=== PATIENT | female | born 1950 | race Caucasian/White ===

== ENCOUNTER → 2016-04-13 | Outpatient (CLI) | payer MEDICARE, MEDICAID ==
[~2016-04-13] MED LIST: ALVESCO160 MCG/Ac IH; ATENOLOL25 MG PO; ATROVENT INHALE14 GM IH; BACTRIM DS 8001 TAB PO; CLARITIN REDITA10 MG PO; COZAAR100 MG PO; CYMBALTA30 MG PO; EPIPEN1 MG/ML MR; EVISTA 60MG60 MG/TAB PO; EVISTA60 MG PO; FOLIC ACID 11 MG/TA1 PO; FOLIC ACID1 MG PO; GEMFIBROZIL600 MG PO; GENTAMICIN180 MG/501 NS; GLUCOTROL 5M5 MG/TAB PO; IPRATROPIUM BROM3 M1 IH; JANUVIA 100MG100 MG PO; KLONOPIN 0.5MG0.5 MG PO; KLONOPIN WAFER0.5 MG PO; LEVOTHYROXINE0.2 MG PO; LIDODERM5% TP; LOPID 600M600 MG/TAB PO; LOSARTAN POTASS50 MG PO; LOVAZA1 GM; MAXALT10 MG; MELATONIN1 MG PO; METFORMIN500 MG PO; MIRAPEX0.5 MG PO; NEURONTIN300 MG PO; NEURONTIN600 MG/TAB PO; NEXIUM 20MG CAP20 MG PO; NEXIUM 40MG40 MG PO; ONGLYZA5 MG PO; PROTONIX 40MG T40 MG PO; SPIRIVA18 MCG IH; ULTRAM 50MG TAB50 MG PO; WELCHOL625 MG PO; XOPENEX HF0.045 MG/A IH; ZESTRIL 20MG TA20 MG PO; vit D
== END ==
LOC: COL.RAD 10:19
DX: M25.512 Pain in left shoulder (principal)
CPT/HCPCS: J3301

== ENCOUNTER → 2016-06-20 | Outpatient (CLI) | payer MEDICARE, MEDICAID | LOC: COL.RAD 08:37 | DX: M25.512 Pain in left shoulder (principal) | CPT/HCPCS: J3301; Q9967 ==

== ENCOUNTER → 2017-10-23 | Outpatient (CLI) | payer MEDICARE, MEDICAID | LOC: SUN.DIA 13:08 | DX: E11.40 Type 2 diabetes mellitus with diabetic neuropathy, unspecified (principal); E78.5 Hyperlipidemia, unspecified; I10 Essential (primary) hypertension; E66.9 Obesity, unspecified; I73.9 Peripheral vascular disease, unspecified | CPT/HCPCS: G0108 ==

== ENCOUNTER 2018-04-07 09:32 | Emergency (ER) | payer MEDICARE, MEDICAID ==
[~2018-04-07] VITALS: Ht 162.6 cm; Wt 118.2 kg
[2018-04-07 09:33] VITALS: TEMP 98.2
[2018-04-07 10:07] LABS: BASO # 0.1 (0.0-0.2); BASO % 1.1 % (0.0-2.0); EOS # 0.2 (0.0-0.7); EOS % 2.1 % (0-4.0); GRAN # 4.9 (1.4-6.5); GRAN % 67.5 % (42.2-75.2); HEMOGLOBIN 12.8 g/dl (12.5-16.0); LYMPH # 1.6 (1.2-3.4); LYMPH % 21.4 % (20.0-51.0); MEAN CELL VOLUME 91 fl (80.0-100.0); MEAN CORPUSCULAR HEMOGLOBIN 32 pg (27.0-31.0); MEAN CORPUSCULAR HGB CONC 35 g/dl (33.0-37.0); MEAN PLATELET VOLUME 10.4 fl (7.4-10.4); MONO # 0.6 (0.1-0.6); MONO % 7.5 % (1.7-9.3); PLATELET COUNT 199 K/mm3 (130-400); RED BLOOD COUNT 3.99 M/mm3 (4.10-5.30); REDCELL DISTRIBUTION WIDTH-CV 11.9 % (11.5-14.5)
[2018-04-07 10:09] LABS: HEMATOCRIT 36.3 % (37.0-47.0)
[2018-04-07 10:16] LABS: ALBUMIN 3.4 gm/dL (3.5-5.0); BILIRUBIN,TOTAL 0.6 mg/dL (0.0-1.0); C-REACTIVE PROTEIN 1.4 mg/dL (0.0-0.9); CALCIUM 8.9 mg/dL (8.4-10.2); CREATININE, serum 0.63 mg/dL (0.52-1.25); POTASSIUM 4.1 mmol/L (3.4-5.0); TOTAL PROTEIN 6.3 gm/dL (6.4-8.2)
[2018-04-07 10:29] LABS: ERYTHROCYTE SEDIMENTATION RATE 14 mm/hr (0-30)
[2018-04-07] MEDS ORDERED: ULTRAM 50MG TAB50 MG PO (10:43)
[2018-04-07 11:24] VITALS: BP 104/81; PULSE 72
== END 2018-04-07 11:30 | disposition home or self-care (01) ==
LOC: COL.ER 09:32
PROVIDERS: Physician Assistant
DX: G89.29 Other chronic pain (principal); M54.2 Cervicalgia; F31.9 Bipolar disorder, unspecified; Z79.84 Long term (current) use of oral hypoglycemic drugs
CPT/HCPCS: J2405; J3010

== ENCOUNTER → 2018-04-18 | Outpatient (CLI) | payer MEDICARE, MEDICAID | LOC: MC.RAD 09:40 | DX: Z12.31 Encounter for screening mammogram for malignant neoplasm of breast (principal); R92.1 Mammographic calcification found on diagnostic imaging of breast ==

== ENCOUNTER → 2018-04-23 | Outpatient (CLI) | payer MEDICARE, MEDICAID | LOC: COL.LAB 09:49 | DX: Z01.812 Encounter for preprocedural laboratory examination (principal); M25.862 Other specified joint disorders, left knee ==

== ENCOUNTER → 2018-04-25 | Outpatient (CLI) | payer MEDICARE, MEDICAID | LOC: MC.RAD 10:11 | DX: R92.0 Mammographic microcalcification found on diagnostic imaging of breast (principal) ==

== ENCOUNTER → 2018-05-01 | Outpatient (CLI) | payer MEDICARE, MEDICAID | LOC: MC.RAD 08:26 | DX: R92.1 Mammographic calcification found on diagnostic imaging of breast (principal); Z98.82 Breast implant status ==

== ENCOUNTER 2021-01-06 12:07 | Inpatient (IN) | payer MEDICARE, MEDICAID ==
[~2021-01-06] VITALS: Ht 162.6 cm; Wt 105.9 kg
[2021-01-06 13:07] LABS: BASO # 0.1 K/mm3 (0.0-0.2); BASO % 1.6 % (0.0-2.0); EOS # 0.2 K/mm3 (0.0-0.7); EOS % 3.2 % (0-4.0); GRAN # 3.7 K/mm3 (1.4-6.5); GRAN % 65.3 % (42.2-75.2); HEMATOCRIT 39.2 % (37.0-47.0); HEMOGLOBIN 13.6 g/dl (12.5-16.0); LYMPH # 1.4 K/mm3 (1.2-3.4); LYMPH % 23.7 % (20.0-51.0); MEAN CELL VOLUME 90 fl (80.0-100.0); MEAN CORPUSCULAR HEMOGLOBIN 31 pg (27.0-31.0); MEAN CORPUSCULAR HGB CONC 35 g/dl (33.0-37.0); MEAN PLATELET VOLUME 10.3 fl (7.4-10.4); MONO # 0.3 K/mm3 (0.1-0.6); MONO % 5.8 % (1.7-9.3); PLATELET COUNT 153 K/mm3 (130-400); RED BLOOD COUNT 4.34 M/mm3 (4.10-5.30); REDCELL DISTRIBUTION WIDTH-CV 12.6 % (11.5-14.5)
[2021-01-06 13:28] LABS: ALBUMIN 4.2 gm/dL (3.4-4.8); BILIRUBIN,TOTAL 0.8 mg/dL (0.2-1.2); CALCIUM 9.8 mg/dL (8.4-10.2); CREATININE, serum 1.56 mg/dL (0.57-1.11); POTASSIUM 4.2 mmol/L (3.5-4.5); TOTAL PROTEIN 7.1 gm/dL (6.2-8.1)
[2021-01-06 13:34] LABS: TROPONIN-I 0.015 ng/mL (0.00-0.033)
[2021-01-06 13:34] LABS: COLLECTION METHOD CLEAN CATCH
[2021-01-06 13:44] LABS: MUCOUS Present /lpf; PH 5 (5-8); SQUAMOUS EPITHELIAL None Seen /hpf; URINE APPEARANCE Clear; URINE BACTERIA None Seen /hpf; URINE BILIRUBIN Negative (NEGATIVE); URINE BLOOD Negative (NEGATIVE); URINE COLOR Yellow; URINE GLUCOSE Negative (NEGATIVE); URINE KETONE Negative (NEGATIVE); URINE LEUKOCYTE ESTERASE Negative (NEGATIVE); URINE NITRATE Negative (NEGATIVE); URINE PROTEIN(semi-quant) Negative (NEGATIVE); URINE RBC 0-2 /hpf; URINE UROBILINOGEN Negative (NEGATIVE)
[2021-01-06 13:45] LABS: INR 1.1 (0.8-3.0); PROTHROMBIN TIME 12.7 SECONDS (9.7-12.8)
[2021-01-06] MEDS ORDERED: LIPITOR20 MG PO (15:53)
[2021-01-06] MEDS ORDERED: CINNAMON500 MG PO (15:56)
[2021-01-06] MEDS ORDERED: FLAXSEED OIL1000 MG PO (15:57)
[2021-01-06] MEDS ORDERED: GLUCOPHAGE1000 MG PO (15:58)
--- NOTE | 2021-01-06 18:09 | NUR ---
PT ARRIVED TO FLOOR, SOME SLURRED SPEECH, L SIDED FACIAL DROOP, NO NOTABLE WEAKNESS NOTED ON L SIDE WITH EXTREMITY STRENGTH TESTING, ASSESSMENT PERFORMED
--- NOTE | 2021-01-06 18:22 | NUR ---
PT REPORTS TWO FALLS RECENTLY, YELLOW BRUISE IN CENTER OF BACK
[2021-01-06 20:48] VITALS: BP 150/75; PULSE 56; TEMP 97.9
--- NOTE | 2021-01-06 21:52 | NUR ---
ALERT AND OX4. NEURO CHECK- WEAK ON LEFT SIDE W MILD FACIAL DROOP. TELE ON. AMB TO BR WITH WALKER. MRI DONE TODAY. NPO UNTIL SPEECH EVALS IN AM. AC/HS BLOOD SUGARS. POC DISCUSSED. CALL LIGHT WI REACH.
[2021-01-07 00:19] VITALS: BP 138/71; PULSE 51; TEMP 97.2
[2021-01-07 05:04] VITALS: BP 135/59; PULSE 50; TEMP 97.6
[2021-01-07 07:04] LABS: CALCIUM 9.5 mg/dL (8.4-10.2); CHOLESTEROL RISK RATIO 4.6; CREATININE, serum 1.63 mg/dL (0.57-1.11); POTASSIUM 3.9 mmol/L (3.5-4.5)
--- NOTE | 2021-01-07 07:25 | NUR ---
PT PLEASANT, AOX4, SLIGHT L FACIAL DROOP, EQUAL GAIT WITH WALKER, AOX4, DENIES PAIN, NO OTHER NEEDS
[2021-01-07 07:28] VITALS: BP 122/72; PULSE 54; TEMP 98.3
--- NOTE | 2021-01-07 07:35 | NUR ---
CALLED AJAY RIOS, IF PT DROPS BELOW 70 PA OK WITH GIVING PT JUICE EVEN THOUGH NPO
--- NOTE | 2021-01-07 10:44 | NUR ---
CHARLY met with the patient to discuss discharge plan. The patient lives alone in [place]. Her son/DPOA-HC, Balaji (ph#[phone]), lives in [place]. She reports independence with ADLs and has a walker, powerscooter, and canes. She states that she receives housekeeping from [employer]. The patient's PCP is Dr. Agata Stewart and [facility]. She reports no difficulties obtaining her meds. The patient's DPOA-HC is in EMR and it designates her son, Balaji. The patient plans to return home upon discharge. SW discussed home health services and it's benefits. The patient is interested in home health. SW provided her with [email or web address]'s list of home health agencies that serve [place]. The patient would like to have her son and crankshaft grinder look over the list too, before picking an agency. PT/OT have been ordered. SW to continue to follow. *Discharge plan: home with home health*
[2021-01-07 11:13] VITALS: BP 147/74; PULSE 58; TEMP 98
--- NOTE | 2021-01-07 11:48 | NUR ---
The patient's family provided her RN with the patient's updated DPOA-HC. SW placed the document in the patient's chart. The patient's DPOA-HC is still her son, Balaji. The alternate is her daughter, Diamante Manuel.
--- NOTE | 2021-01-07 14:35 | NUR ---
Primary nurse was assisted with [id number] patient care by [facility] [employer] [facility] Smith Pérez and [employer] instructor Sahra Salazar MSN, RN
[2021-01-07 15:28] LABS: CREATININE, serum 1.54 mg/dL (0.57-1.11); FRACTIONAL EXCRETION OF NA+ 1.2 %
[2021-01-07 15:59] VITALS: BP 141/75; PULSE 65; TEMP 97.8
--- NOTE | 2021-01-07 18:15 | NUR ---
PT CONTINUES TO HAVE SOME LEFT SIDED DROOPING AND A LITTLE DIFFICULTY WITH SPEECH, HOWEVER PT FEELS BOTH ARE CONTINUING TO IMPROVE. PT AMBULATES WELL WITH WALKER. DR. WYLIE CAME TO SPEAK WITH PT. PT STATED THAT HE SAID HE DIDN'T THINK SHE HAVE A STROKE. PT ASKED ME WHAT HAPPENED TO HER. I EXPLAINED WHAT A TIA WAS AND WHAT WE WERE DOING TO HELP PREVENT HER FROM HAVING A STROKE. PT STATES NO OTHER NEEDS AT THIS TIME. CALL LIGHT IS WITHIN REACH.
[2021-01-07 19:17] VITALS: BP 138/73; PULSE 66; TEMP 97.5
--- NOTE | 2021-01-07 20:00 | NUR ---
Assessment complete. Patient alert and oriented with no complaints at this time. Hand linseed oil press tender are equal, speech is slighty slurred and left-sided facial droop is mildly present. Fluids infusing, per order, into right forearm IV. No concerns, call light in reach.
[2021-01-08 03:03] VITALS: BP 124/67; PULSE 60; TEMP 97.9
--- NOTE | 2021-01-08 05:59 | NUR ---
Uneventful night. Neuro checks have remained consistent. Patient has ambulated twice to restroom with SBA. No new concerns.
[2021-01-08 06:39] LABS: HEMATOCRIT 39.3 % (37.0-47.0); HEMOGLOBIN 13.5 g/dl (12.5-16.0); MEAN CELL VOLUME 92 fl (80.0-100.0); MEAN CORPUSCULAR HEMOGLOBIN 32 pg (27.0-31.0); MEAN CORPUSCULAR HGB CONC 34 g/dl (33.0-37.0); MEAN PLATELET VOLUME 10.5 fl (7.4-10.4); PLATELET COUNT 151 K/mm3 (130-400); RED BLOOD COUNT 4.27 M/mm3 (4.10-5.30); REDCELL DISTRIBUTION WIDTH-CV 12.7 % (11.5-14.5)
[2021-01-08 06:53] LABS: CALCIUM 9.9 mg/dL (8.4-10.2); CREATININE, serum 1.39 mg/dL (0.57-1.11); POTASSIUM 3.7 mmol/L (3.5-4.5)
[2021-01-08 07:34] VITALS: BP 127/60; PULSE 56; TEMP 98
--- NOTE | 2021-01-08 09:13 | NUR ---
Pt awake upon entry to room, in bed. No C/O pain at this time. Slight deficit left hand carry out clerk and shelf stocker, no other noticable deficits. Shift assessment complete, left Pt call light in reach, bed in lowest position.
[2021-01-08 12:19] VITALS: BP 149/74; PULSE 64; TEMP 97.6
[2021-01-08 16:26] VITALS: BP 143/90; PULSE 76; TEMP 98.2
[2021-01-08 19:33] VITALS: BP 154/89; PULSE 68; TEMP 98.8
--- NOTE | 2021-01-08 21:29 | NUR ---
PT IS LAYING IN BED, COMPLAINS OF THE PRESSURE IN CHEST THAT HAS BEEN INTERMITTENT THROUGHOUT DAY, AFTER USING RESTROOM, STATED PRESSURE IS NOT THERE. PT IS PLEASANT AND IS COMPLIANT. PT GAIT IS STEADY WITH WALKER TO BATHROOM. PT HAS SLIGHT LEFT SIDED FACIAL DROOP IN MOUTH AREA. HAND STRENGTH IS STRONG AND ALMOST EQUAL. NOTICED SLIGHTLY LESS STRENGTH IN LEFT HAND, BARELY NOTICEABLE. PT STATED SHE WANTED NON-PUREED FOOD BUT UNDERSTANDS WHY SHE CANNOT.
[2021-01-08 23:30] VITALS: BP 138/61; PULSE 62; TEMP 97.8
[2021-01-09 03:10] VITALS: BP 139/70; PULSE 56; TEMP 97.9
--- NOTE | 2021-01-09 03:30 | NUR ---
Patient care, medication administration and nursing documentation occurred during a Daylight Savings Time Change.
--- NOTE | 2021-01-09 06:06 | NUR ---
Pt was pleasant all evening, talked throughout night and slept without complaint. Took all medications as prescribed. No needs at this time, call light in reach.
[2021-01-09 07:30] LABS: CALCIUM 9.8 mg/dL (8.4-10.2); CREATININE, serum 1.34 mg/dL (0.57-1.11); POTASSIUM 4.1 mmol/L (3.5-4.5)
[2021-01-09 08:22] VITALS: BP 145/75; PULSE 63; TEMP 98
--- NOTE | 2021-01-09 09:14 | NUR ---
Pt awake upon entry, no C/O pain at this time. Shift assessment complete, left Pt call light in reach, bed in lowest position.
[2021-01-09 11:35] VITALS: BP 136/76; PULSE 53; TEMP 97.9
[2021-01-09 16:43] VITALS: BP 147/79; PULSE 59; TEMP 98.4
[2021-01-10] VITALS (9 sets, daily range): BP systolic 116–158; BP diastolic 70–96; PULSE 57–83; TEMP 97.3
--- NOTE | 2021-01-10 05:52 | NUR ---
0020-RN IN TO ROOM TO GIVE HEPARIN, PT EXPRESSING SEVERAL CONCERNS REGARDING HER CARE, NOTIFIED PLATER BARREL CHAS CASTREJON AND SHE CAME TO VISIT PT. PT REPORTS HER CHEST PAIN HAS GOTTEN INCREASINGLY WORSE THROUGHOUT TONIGHT, STARTING WHEN SHE WAS AMBULATING IN [place] @2245. NOTIFIED MAIA DENNY, ORDERS REC'D FOR NITRO SL X1 AND STAT EKG, PT REPORTED PAIN OF 6/10 PRIOR TO NITRO WITH 3/10 HER BASELINE, 5 MIN AFTER NITRO REPORTED PAIN DOWN TO 4/10, EKG DONE, 0215 VS RECHECKED, PT UP TO RESTROOM THEN BACK TO BED, RESTING IN BED WITH EYES CLOSED @0300.
[2021-01-10 07:01] LABS: BASO # 0.1 K/mm3 (0.0-0.2); BASO % 2.1 % (0.0-2.0); EOS # 0.1 K/mm3 (0.0-0.7); EOS % 2.1 % (0-4.0); GRAN # 2.4 K/mm3 (1.4-6.5); GRAN % 56.8 % (42.2-75.2); HEMOGLOBIN 13.4 g/dl (12.5-16.0); LYMPH # 1.4 K/mm3 (1.2-3.4); LYMPH % 31.9 % (20.0-51.0); MEAN CELL VOLUME 90 fl (80.0-100.0); MEAN CORPUSCULAR HEMOGLOBIN 32 pg (27.0-31.0); MEAN CORPUSCULAR HGB CONC 35 g/dl (33.0-37.0); MEAN PLATELET VOLUME 10.8 fl (7.4-10.4); MONO # 0.3 K/mm3 (0.1-0.6); MONO % 6.6 % (1.7-9.3); PLATELET COUNT 143 K/mm3 (130-400); RED BLOOD COUNT 4.21 M/mm3 (4.10-5.30); REDCELL DISTRIBUTION WIDTH-CV 12.6 % (11.5-14.5)
[2021-01-10 07:13] LABS: CALCIUM 10.1 mg/dL (8.4-10.2); CREATININE, serum 1.27 mg/dL (0.57-1.11); POTASSIUM 3.6 mmol/L (3.5-4.5)
--- NOTE | 2021-01-10 08:40 | NUR ---
Pt awake upon entry, no C/O pain at this time. Shift assessment complete, left Pt call light in reach, bed in lowest position.
[2021-01-10] MEDS ORDERED: LIPITOR 40MG TA40 MG PO (15:27)
[2021-01-10] MEDS ORDERED: PLAVIX 75MG TAB75 MG PO (15:27)
--- NOTE | 2021-01-10 15:57 | NUR ---
Veterinary Medicine Teacher followed up with patient who will discharge today. Patient states she has a caregiver hired through [employer] who will start tonight and provide support overnight. Patient is also open to Home Health PT/OT/Nursing and would like to use [facility]. CHARLY contacted Rosa at [facility] and faxed referral and orders. Rosa to call back if there are any issues with accepting. Discharge Plan: Home with [facility]
--- NOTE | 2021-01-10 16:00 | NUR ---
Pt discharged to home, discussed discharge information cari Pt, answered questions. Escorted Pt to entrance via WC, assisted into vehicle. Pt left with friend via private transportation.
== END 2021-01-10 16:00 | disposition home health service (06) | DRG 69 ==
LOC: COL.ER 12:07 → MEDICAL 16:13
PROVIDERS: Emergency Medicine; Physician Assistant; ADMIT Internal Medicine
DX: G45.9 Transient cerebral ischemic attack, unspecified (principal); N17.9 Acute kidney failure, unspecified; I10 Essential (primary) hypertension; E11.9 Type 2 diabetes mellitus without complications; I35.0 Nonrheumatic aortic (valve) stenosis; I20.8 Other forms of angina pectoris; R13.10 Dysphagia, unspecified
CPT/HCPCS: 99239; A9500; G0378; J1644; J2785; J7030; J7120; Q9967

== ENCOUNTER → 2021-08-31 | Outpatient (CLI) | payer MEDICARE, MEDICAID ==
[~2021-08-31] MED LIST changes: +CINNAMON500 MG PO; +FLAXSEED OIL1000 MG PO; +GLUCOPHAGE1000 MG PO; +LIPITOR 40MG TA40 MG PO; +LIPITOR20 MG PO; +PLAVIX 75MG TAB75 MG PO
[2021-08-31 19:08] LABS: BASO # 0.1 K/mm3 (0.0-0.2); BASO % 1.2 % (0.0-2.0); EOS # 0.1 K/mm3 (0.0-0.7); EOS % 2.8 % (0.0-4.0); GRAN # 2.7 K/mm3 (1.4-6.5); GRAN % 62.8 % (42.2-75.2); HEMOGLOBIN 10.8 g/dl (12.5-16.0); MEAN CELL VOLUME 87 fl (80.0-100.0); MEAN CORPUSCULAR HEMOGLOBIN 30 pg (27-31); MEAN CORPUSCULAR HGB CONC 35 g/dl (33.0-37.0); MEAN PLATELET VOLUME 10.4 fl (7.4-10.4); MONO # 0.4 K/mm3 (0.1-0.6); PLATELET COUNT 179 K/mm3 (130-400); RED BLOOD COUNT 3.55 M/mm3 (4.10-5.30); REDCELL DISTRIBUTION WIDTH-CV 11.2 % (11.5-14.5)
[2021-08-31 19:09] LABS: HEMATOCRIT 30.7 % (37.0-47.0)
[2021-08-31 19:19] LABS: ALANINE AMINOTRANSFERASE 31 U/L (0-55); ALBUMIN 3.7 gm/dL (3.4-4.8); ALKALINE PHOSPHATASE 49 U/L (40-150); ANION GAP 11 mmol/L (7-16); AST,SGOT 37 U/L (5-34); BILIRUBIN,TOTAL 0.4 mg/dL (0.2-1.2); BLOOD UREA NITROGEN 27 mg/dL (10-20); CARBON DIOXIDE 22 mmol/L (23-31); CHLORIDE 109 mmol/L (98-107); CHOLESTEROL 131 mg/dL (0-199); CHOLESTEROL RISK RATIO 3.7; CREATININE, serum 1.24 mg/dL (0.57-1.11); GLUCOSE 91 mg/dL (70-99); HDL CHOLESTEROL 35 mg/dL (40-60); LDL CHOLESTEROL 33 mg/dL; SODIUM 142 mmol/L (136-145); TOTAL PROTEIN 6.4 gm/dL (6.2-8.1); TRIGLYCERIDE 315 mg/dL (0-149)
[2021-08-31 19:39] LABS: THYROID STIMULATING HORMONE <0.003 uIU/mL (0.350-4.940)
== END ==
LOC: ZCOL.LAB 18:08
PROVIDERS: Nurse Practitioner Family
DX: N18.4 Chronic kidney disease, stage 4 (severe) (principal); E11.29 Type 2 diabetes mellitus with other diabetic kidney complication; E78.5 Hyperlipidemia, unspecified; E03.9 Hypothyroidism, unspecified

== ENCOUNTER → 2022-12-15 | Outpatient (CLI) | payer MEDICARE, MEDICAID ==
[2022-12-15 11:30] LABS: ALBUMIN 4.2 gm/dL (3.4-4.8); BILIRUBIN,TOTAL 0.7 mg/dL (0.2-1.2); CALCIUM 10.1 mg/dL (8.4-10.2); CHOLESTEROL RISK RATIO 7.3; CREATININE, serum 2.23 mg/dL (0.57-1.11); POTASSIUM 5.2 mmol/L (3.5-4.5); TOTAL PROTEIN 7.2 gm/dL (6.2-8.1)
[2022-12-15 12:20] LABS: THYROID STIMULATING HORMONE 212.139 uIU/mL (0.350-4.940)
== END ==
LOC: COL.LAB 10:21
PROVIDERS: Nurse Practitioner Family
DX: E78.5 Hyperlipidemia, unspecified (principal); I10 Essential (primary) hypertension; E11.22 Type 2 diabetes mellitus with diabetic chronic kidney disease